=== PATIENT | female | born 1960 | race Caucasian/White ===

== ENCOUNTER → 2020-03-14 07:13 | Outpatient (BNVA) | payer OTHER, SELFPAY | PROVIDERS: Visit Provider Internal Medicine Endocrinology, Diabetes & Metabolism | DX: E11.42 Type 2 diabetes mellitus with diabetic polyneuropathy (principal); E11.21 Type 2 diabetes mellitus with diabetic nephropathy; E11.3299 Type 2 diabetes mellitus with mild nonproliferative diabetic retinopathy without macular edema, unspecified eye; Z79.84 Long term (current) use of oral hypoglycemic drugs; E04.2 Nontoxic multinodular goiter; I10 Essential (primary) hypertension; E78.5 Hyperlipidemia, unspecified | CPT/HCPCS: 82947; 99212 ==

== ENCOUNTER → 2020-03-21 08:12 | Outpatient (BNVA) | payer OTHER, SELFPAY | PROVIDERS: Visit Provider Dietitian, Registered | DX: Z76.89 Persons encountering health services in other specified circumstances (principal) ==

== ENCOUNTER 2020-08-18 08:17 | Outpatient (REF) | payer OTHER, SELFPAY | END 2020-08-18 08:18 | disposition home or self-care (01) | LOC: HO.LAB 08:17 | PROVIDERS: Visit Provider Physician Assistant | DX: K91.2 Postsurgical malabsorption, not elsewhere classified (principal); Z98.84 Bariatric surgery status; Z90.3 Acquired absence of stomach [part of] | CPT/HCPCS: 99212 ==

== ENCOUNTER 2020-10-24 08:02 | Outpatient (REF) | payer OTHER, SELFPAY ==
[2020-10-24 09:45] LABS: MANUAL DIFF FLAG NO
[2020-10-24 09:51] LABS: Basophils Percent Auto 0.6 % (0-2); Eosinophils Absolute Auto 0.1 X10*3/uL (0.0-0.4); Eosinophils Percent Auto 2.7 % (0-4); Hematocrit 32.7 % (37-47); Hemoglobin 10.1 g/dl (12.0-16.0); Imm Gran Abs Auto 0.01 X10*3/uL (0.00-0.03); Imm Gran Pct Auto 0.3 % (0.0-0.4); Lymphocytes Absolute Auto 1.1 X10*3/uL (1.2-4.9); Lymphocytes Percent Auto 33.3 % (20-40); Mean Corpuscular HGB Conc 30.9 g/dl (31.0-35.0); Mean Corpuscular Hemoglobin 24.9 pg (27.0-33.0); Mean Corpuscular Volume 80.5 fL (80-98); Mean Platelet Volume 9.4 fL (9.4-12.3); Monocytes Absolute Auto 0.3 X10*3/uL (0.1-1.2); Monocytes Percent Auto 8.2 % (2-11); Neutrophils Absolute Auto 1.8 X10*3/uL (2.0-8.3); Neutrophils Percent Auto 54.9 % (45-73); Platelet Count 272 X10*3/uL (160-400); Red Blood Count 4.06 X10*6/uL (4.20-5.50); Red Cell Distribution Width 14.4 % (11.0-16.0); White Blood Count 3.3 X10*3/uL (4.8-10.8)
[2020-10-24 10:04] LABS: Estimated Average Glucose 160 mg/dL; Hemoglobin A1c % 7.2 %
[2020-10-24 10:13] LABS: Alanine Aminotransferase 58 U/L (0-31); Albumin Level 4.1 g/dL (3.5-5.0); Alkaline Phosphatase 71 U/L (39-117); Anion Gap 11 (12-20); Aspartate Amino Transferase 44 U/L (5-31); Bilirubin Total 0.5 mg/dL (0.0-1.0); Blood Urea Nitrogen 12 mg/dL (9-16); C Reactive Protein < 0.02 mg/dL (< or = 0.50); Calcium 8.9 mg/dL (8.4-10.2); Carbon Dioxide 27 mmol/L (22-29); Chloride 106 mmol/L (96-108); Cholesterol 131 mg/dL; Estimated Glomerular Filt Rate > 60; Glucose Fasting 104 mg/dL (60-99); HDL Cholesterol 65 mg/dL; Iron 29 mcg/dL (30-160); LDL Cholesterol Calculated 55 mg/dl; Percent Iron Saturation 7 % (15-50); Sodium 140 mmol/L (135-145); Total Iron Binding Capacity 432 mcg/dL (228-428); Total Protein 7.1 g/dL (6.5-8.0); Triglycerides 56 mg/dL; Unsaturated Iron Binding 403 ug/dL
[2020-10-24 10:22] LABS: Creatinine Urine 208.05 mg/dL; Microalbum/Creatinine Ratio Ur 12.9 ug/mg cr
[2020-10-24 10:33] LABS: Ferritin 3 ng/mL (10-250); TSH reflex Free T4 0.35 uIU/mL (0.32-4.0); Vitamin D 25-OH Total 33.1 ng/mL (>30)
[2020-10-24 10:39] LABS: Free T4 (Free Thyroxine) 0.85 ng/dL (0.71-1.85); Thyroid Stimulating Hormone 0.34 uIU/mL (0.32-4.0)
[2020-10-24 10:53] LABS: Folate 14.4 ng/mL (> or = 4.0); Vitamin B12 283 pg/mL (200-900)
[2020-10-25 14:52] LABS: LDL Cholesterol Direct 52 mg/dL (<100)
[2020-10-25 18:32] LABS: Insulin Level Total 4.5 uIU/mL
[2020-10-26 10:36] LABS: Calcium (PTHI) 9.1 mg/dL (8.6-10.4); PTHI 49 pg/mL (14-64)
[2020-10-27 06:31] LABS: Zinc 90 mcg/dL (60-130)
[2020-10-28 00:47] LABS: Vitamin A 47 mcg/dL (38-98)
[2020-10-29 13:41] LABS: Vitamin B1 15 nmol/L (8-30)
== END 2020-10-24 08:03 | disposition home or self-care (01) ==
LOC: HO.LAB 08:02
PROVIDERS: Absent Provider Physician Assistant; PCP Family Medicine; Visit Provider Internal Medicine Endocrinology, Diabetes & Metabolism
DX: E11.65 Type 2 diabetes mellitus with hyperglycemia (principal); E11.3299 Type 2 diabetes mellitus with mild nonproliferative diabetic retinopathy without macular edema, unspecified eye; E11.42 Type 2 diabetes mellitus with diabetic polyneuropathy; K91.2 Postsurgical malabsorption, not elsewhere classified; E66.01 Morbid (severe) obesity due to excess calories; E78.5 Hyperlipidemia, unspecified; E04.2 Nontoxic multinodular goiter; I10 Essential (primary) hypertension; Z98.84 Bariatric surgery status; Z90.3 Acquired absence of stomach [part of]
CPT/HCPCS: 36415; 80053; 80061; 82043; 82306; 82607; 82728; 82746; 82947; 83036; 83525; 83540; 83721; 83970; 84425; 84439; 84443; 84590; 84630; 85025; 86140; 99212

== ENCOUNTER → 2020-11-15 08:13 | Outpatient (BNVA) | payer OTHER, SELFPAY | PROVIDERS: PCP Family Medicine; Visit Provider Physician Assistant | DX: K91.2 Postsurgical malabsorption, not elsewhere classified (principal); Z90.3 Acquired absence of stomach [part of]; Z98.84 Bariatric surgery status; E66.01 Morbid (severe) obesity due to excess calories ==

== ENCOUNTER 2021-01-26 07:51 | Outpatient (REF) | payer OTHER, SELFPAY ==
[2021-01-26 08:37] LABS: MANUAL DIFF FLAG NO
[2021-01-26 08:44] LABS: Basophils Percent Auto 0.5 % (0-2); Eosinophils Absolute Auto 0.1 X10*3/uL (0.0-0.4); Eosinophils Percent Auto 2.2 % (0-4); Hematocrit 36.9 % (37-47); Hemoglobin 11.7 g/dl (12.0-16.0); Imm Gran Abs Auto 0.01 X10*3/uL (0.00-0.03); Imm Gran Pct Auto 0.2 % (0.0-0.4); Lymphocytes Absolute Auto 1.4 X10*3/uL (1.2-4.9); Lymphocytes Percent Auto 32.6 % (20-40); Mean Corpuscular HGB Conc 31.7 g/dl (31.0-35.0); Mean Corpuscular Hemoglobin 25.8 pg (27.0-33.0); Mean Corpuscular Volume 81.5 fL (80-98); Mean Platelet Volume 9.1 fL (9.4-12.3); Monocytes Absolute Auto 0.4 X10*3/uL (0.1-1.2); Monocytes Percent Auto 8.9 % (2-11); Neutrophils Absolute Auto 2.3 X10*3/uL (2.0-8.3); Neutrophils Percent Auto 55.6 % (45-73); Platelet Count 257 X10*3/uL (160-400); Red Blood Count 4.53 X10*6/uL (4.20-5.50); Red Cell Distribution Width 15.5 % (11.0-16.0); White Blood Count 4.2 X10*3/uL (4.8-10.8)
[2021-01-26 09:20] LABS: Alanine Aminotransferase 30 U/L (0-31); Albumin Level 4.1 g/dL (3.5-5.0); Alkaline Phosphatase 68 U/L (39-117); Anion Gap 9 (12-20); Aspartate Amino Transferase 27 U/L (5-31); Bilirubin Total 0.7 mg/dL (0.0-1.0); Blood Urea Nitrogen 12 mg/dL (9-16); Calcium 9.3 mg/dL (8.4-10.2); Carbon Dioxide 30 mmol/L (22-29); Chloride 104 mmol/L (96-108); Estimated Glomerular Filt Rate > 60; Glucose Random 121 mg/dL (60-115); Iron 64 mcg/dL (30-160); Percent Iron Saturation 16 % (15-50); Potassium 4.2 mmol/L (3.3-5.1); Sodium 139 mmol/L (135-145); Total Iron Binding Capacity 401 mcg/dL (228-428); Total Protein 7.2 g/dL (6.5-8.0); Unsaturated Iron Binding 337 ug/dL
[2021-01-26 09:36] LABS: Ferritin 8 ng/mL (10-250)
[2021-01-26 10:57] LABS: Folate 16.6 ng/mL (> or = 4.0); Vitamin B12 > 2000 pg/mL (200-900)
== END 2021-01-26 07:52 | disposition home or self-care (01) ==
LOC: HO.LAB 07:51
PROVIDERS: PCP Family Medicine; Visit Provider Physician Assistant
DX: K91.2 Postsurgical malabsorption, not elsewhere classified (principal); D64.9 Anemia, unspecified; E53.8 Deficiency of other specified B group vitamins; K59.00 Constipation, unspecified; E66.1 Drug-induced obesity; R00.0 Tachycardia, unspecified; E11.8 Type 2 diabetes mellitus with unspecified complications; Z98.84 Bariatric surgery status
CPT/HCPCS: 36415; 80053; 82607; 82728; 82746; 83540; 85025; 99212

== ENCOUNTER → 2021-04-28 07:58 | Outpatient (BNVA) | payer OTHER, SELFPAY | PROVIDERS: PCP Family Medicine; Visit Provider Physician Assistant Surgical ==

== ENCOUNTER 2021-09-19 08:14 | Outpatient (REF) | payer OTHER, SELFPAY ==
--- NOTE | ~2021-09-19 | US_ITS ---
EXAMINATION: US THYROID CLINICAL INFORMATION: Nontoxic multinodular goiter. COMPARISON: Thyroid ultrasound 12/23/2019 and 12/29/2018. Ultrasound-guided thyroid biopsy 08/22/2017. TECHNIQUE: Linear transducer grayscale and color Doppler examination with attention to the region of the thyroid. FINDINGS: SIZE: Measurements of the thyroid lobes and nodules are given in sagittal, anteroposterior and transverse dimensions respectively. Right Thyroid Lobe: 5.6 x 1.4 x 1.5 cm, volume 4.2 mL. Previously 5.4 x 1.4 x 1.4 cm, volume 5.5 mL. Parenchyma: The gland echotexture is homogeneous. Thyroid vascularity is normal. Left Thyroid Lobe: 5.5 x 1.4 x 1.5 cm, volume 6.1 mL. Previously 5.5 x 1.5 x 1.3 cm, volume 5.6 mL. Parenchyma: The gland echotexture is homogeneous. Thyroid vascularity is increased. Isthmus: 0.2 cm in maximum AP dimension. Previously 0.2 cm. Estimated total number of nodules greater than or equal to 1 cm: 3. Plant Hr Manager nodules are described as follows: 1. Location: Right mid pole. Size: 1.1 x 0.6 x 0.6 cm, volume 0.2 mL. Previously: 0.9 x 0.6 x 0.6 cm, volume 0.2 mL. Nodule characteristics: Composition: Solid (2). Echogenicity: Hypoechoic (2). Shape: Not taller than wide (0). Margins: Ill-defined (0). Echogenic Foci: None (0). ACR TI-RADS total points: 4 ACR TI-RADS category: 4 Significant change in size (>/= 20% in 2 dimensions and minimal increase of 2 mm or 50% or greater increase in volume): No Change in features: No Change in ACR TI-RADS risk category: No 2. Location: Right mid pole. Size: 0.9 x 0.4 x 0.4 cm, volume 0.08 mL. Previously: 0.6 x 0.4 x 0.5 cm, volume 0.06 mL. Nodule characteristics: Composition: Solid (2). Echogenicity: Hypoechoic (2). Shape: Not taller than wide (0). Margins: Ill-defined (0). Echogenic Foci: None (0). ACR TI-RADS total points: 4 ACR TI-RADS category: 4 Significant change in size (>/= 20% in 2 dimensions and minimal increase of 2 mm or 50% or greater increase in volume): Yes Change in features: No Change in ACR TI-RADS risk category: No 3. Location: Left mid pole. Size: 1.1 x 1.0 x 0.9 cm, volume 0.5 mL. Previously: 1.2 x 0.8 x 0.7 cm, volume 0.3 mL. Nodule characteristics: Composition: Solid/almost completely solid (2). Echogenicity: Isoechoic (1). Shape: Taller than wide (3). Margins: Ill-defined (0). Echogenic Foci: Macrocalcifications (1). ACR TI-RADS total points: 7 ACR TI-RADS category: 5 Significant change in size (>/= 20% in 2 dimensions and minimal increase of 2 mm or 50% or greater increase in volume): Yes Change in features: No Change in ACR TI-RADS risk category: No 4. Location: Left lower pole. Size: 2.6 x 1.1 x 2.1 cm, volume 3.2 mL. Previously: 2.7 x 1.4 x 1.9 cm, volume 3.8 mL. Nodule characteristics: Composition: Solid (2). Echogenicity: Isoechoic (1). Shape: Not taller than wide (0). Margins: Smooth (0). Echogenic Foci: Macrocalcifications (1). Punctate echogenic foci (3). ACR TI-RADS total points: 7 ACR TI-RADS category: 5 Significant change in size (>/= 20% in 2 dimensions and minimal increase of 2 mm or 50% or greater increase in volume): No Change in features: No Change in ACR TI-RADS risk category: No NODES: No lymphadenopathy is seen in the tissue surrounding the thyroid gland. US/US thyroid IMPRESSION: Redemonstration of multiple thyroid nodules with a slightly hyperemic left lobe of the thyroid. Specifically, sales representative jewelry nodules are as follow: Nodule 1: Measuring up to 1.1 cm not significantly changed, TR 4. Continued surveillance by imaging is recommended. Nodule 2: Measuring up to 0.9 cm, slightly increase in size (previously 0.6 cm), TR 4. Continued surveillance but imaging is recommended. Nodule 3: Measuring up to 1.1 cm volume of 0.5 mL, slightly increased in size (previously volume of 0.3 mL), TR 5. If not already obtained, FNA is recommended alternatively, continued surveillance is advised. Nodule 4: Measuring up to 2.6 cm, not significantly changed, TR 5. As above, if not already obtained, FNA is recommended otherwise continue surveillance is advised. ACR TI-RADS RECOMMENDATION REFERENCE: Ultrasound-guided fine-needle aspiration, followup ultrasound, no further follow up. * TR1 (0 point) and TR 2 (2 points): No FNA or follow up * TR3 (3 points): FNA if more than or equal to 2.5 cm in maximum dimension, followup ultrasound in 1, 3 and 5 years if 1.5 to 2.4 cm in maximum dimension. * TR4 (4-6 points): FNA if more than or equal to 1.5 cm in maximum dimension, followup ultrasound in 1, 2, 3 and 5 years if 1 to 1.4 cm in maximum dimension. * TR5 (more than or equal to 7 points): FNA if more than or equal to 1 cm in maximum dimension, followup ultrasound every year for 5 years if 0.5 to 0.9 cm in maximum dimension. * TR3, TR4 or TR5 nodules that are below the size threshold for follow up receive no follow up.
== END 2021-09-19 08:15 | disposition home or self-care (01) ==
LOC: HO.US 08:14
PROVIDERS: Visit Provider Internal Medicine Endocrinology, Diabetes & Metabolism
DX: E04.2 Nontoxic multinodular goiter (principal)
CPT/HCPCS: 76536

== ENCOUNTER → 2021-11-02 07:57 | Outpatient (BNVA) | payer OTHER, SELFPAY | PROVIDERS: PCP Family Medicine; Visit Provider Internal Medicine Endocrinology, Diabetes & Metabolism | DX: E11.65 Type 2 diabetes mellitus with hyperglycemia (principal); E04.2 Nontoxic multinodular goiter; Z79.84 Long term (current) use of oral hypoglycemic drugs | CPT/HCPCS: 82947; 99212 ==

== ENCOUNTER 2021-11-02 08:41 | Outpatient (REF) | payer OTHER, SELFPAY ==
[2021-11-02 10:46] LABS: Anion Gap 10 (12-20); Blood Urea Nitrogen 10 mg/dL (9-16); Calcium 9.1 mg/dL (8.4-10.2); Carbon Dioxide 29 mmol/L (22-29); Chloride 104 mmol/L (96-108); Cholesterol 126 mg/dL; Estimated Glomerular Filt Rate > 60; Glucose Random 103 mg/dL (60-115); HDL Cholesterol 55 mg/dL; LDL Cholesterol Calculated 57 mg/dl; Potassium 4.2 mmol/L (3.3-5.1); Sodium 139 mmol/L (135-145); Triglycerides 73 mg/dL
[2021-11-02 11:09] LABS: Free T4 (Free Thyroxine) 0.85 ng/dL (0.71-1.85); Thyroid Stimulating Hormone 0.88 uIU/mL (0.32-4.0)
[2021-11-02 11:12] LABS: Creatinine Urine 177.54 mg/dL; Microalbum/Creatinine Ratio Ur 23.6 ug/mg cr
== END 2021-11-02 08:42 | disposition home or self-care (01) ==
LOC: HO.10HDL 08:41
PROVIDERS: Visit Provider Internal Medicine Endocrinology, Diabetes & Metabolism
DX: E11.65 Type 2 diabetes mellitus with hyperglycemia (principal); E04.2 Nontoxic multinodular goiter
CPT/HCPCS: 36415; 80048; 80061; 82043; 84439; 84443

== ENCOUNTER → 2022-05-03 07:48 | Outpatient (BNVA) | payer OTHER, SELFPAY | PROVIDERS: PCP Family Medicine; Visit Provider Internal Medicine Endocrinology, Diabetes & Metabolism | DX: E11.65 Type 2 diabetes mellitus with hyperglycemia (principal); E04.2 Nontoxic multinodular goiter | CPT/HCPCS: 82947; 83036; 99212 ==

== ENCOUNTER 2023-05-24 23:23 | Emergency (ER) | payer OTHER, SELFPAY ==
--- NOTE | 2023-05-24 | ECG_ITS ---
Test Reason : SHORTNESS OF BREATH Blood Pressure : / mmHG Vent. Rate : 067 BPM Atrial Rate : 067 BPM P-R Int : 136 ms QRS Dur : 078 ms QT Int : 396 ms P-R-T Axes : 065 -04 052 degrees QTc Int : 418 ms Normal sinus rhythm Low voltage QRS Borderline ECG When compared with ECG of 07-FEB-2018 14:50, Vent. rate has decreased BY 41 BPM Referred By: Generic ED Physician Electronically Signed By:MICAELA BRAGA MD
[2023-05-24 23:28] VITALS: BP 126/70; PULSE 71; RESP 18; TEMP 36.7; O2SAT 97; BMI 36.0
[2023-05-24 23:59] LABS: MANUAL DIFF FLAG NO
[2023-05-25 00:01] LABS: Basophils Percent Auto 0.5 % (0-2); Eosinophils Absolute Auto 0.2 X10*3/uL (0.0-0.4); Eosinophils Percent Auto 3.7 % (0-4); Hematocrit 38.9 % (37.0-47.0); Imm Gran Abs Auto 0.01 X10*3/uL (0.00-0.03); Imm Gran Pct Auto 0.2 % (0.0-0.4); Lymphocytes Absolute Auto 1.3 X10*3/uL (1.2-4.9); Lymphocytes Percent Auto 32.8 % (20-40); Mean Corpuscular HGB Conc 33.4 g/dl (31.0-35.0); Mean Corpuscular Hemoglobin 29.6 pg (27.0-33.0); Mean Corpuscular Volume 88.6 fL (80.0-98.0); Mean Platelet Volume 8.6 fL (9.4-12.3); Monocytes Absolute Auto 0.4 X10*3/uL (0.1-1.2); Monocytes Percent Auto 9.1 % (2-11); Neutrophils Absolute Auto 2.2 x10*3/uL (2.0-8.3); Neutrophils Percent Auto 53.7 % (45-73); Platelet Count 262 X10*3/uL (160-400); Red Blood Count 4.39 X10*6/uL (4.20-5.50); Red Cell Distribution Width 11.9 % (11.0-16.0); White Blood Count 4.1 X10*3/uL (4.8-10.8)
[2023-05-25 00:20] LABS: Alanine Aminotransferase 45 U/L (0-31); Alkaline Phosphatase 76 U/L (39-117); Anion Gap 12 (12-20); Aspartate Amino Transferase 28 U/L (5-31); Bilirubin Total 0.4 mg/dL (0.0-1.0); Blood Urea Nitrogen 15 mg/dL (9-16); Calcium 9.2 mg/dL (8.4-10.2); Carbon Dioxide 27 mmol/L (22-29); Chloride 105 mmol/L (96-108); Creatinine Clr Calc Pharmacy 86.7; Estimated Glomerular Filt Rate > 60; Glucose Random 111 mg/dL (60-115); Potassium 3.7 mmol/L (3.3-5.1); Sodium 140 mmol/L (135-145); Total Protein 7.3 g/dL (6.5-8.0)
[2023-05-25 00:38] LABS: Troponin-I High Sensitivity < 2.7 ng/L (<3.5-17.0)
[2023-05-25 03:38] VITALS: BP 121/62; PULSE 63; RESP 16; TEMP 36.8; O2SAT 97
[2023-05-25] MEDS: oxyCODONE HCl Immed Release 5 MG TABLET PO (03:50)
[2023-05-25] MEDS: Lidocaine 4 % Patch ADH..PATCH 1 PATCH TRANSDERMA (03:51)
[2023-05-25] MEDS: Ondansetron ODT 4 MG TAB.RAPDIS TRANSLINGU (03:51)
--- NOTE | 2023-05-25 03:54 | ED.NECK ---
HPI - Neck Pain/Injury General Chief Complaint: Extremity Problem Stated Complaint: ?L side numbness Time Seen by Provider: 05/25/23 02:43 Source: patient Mode of arrival: ambulatory Limitations: no limitations History of Present Illness HPI Narrative: 62 yo female with PMH of diabetes, diabetic neuropathy, anemia, gastric bypass, HLD, HTN, here with c/o L sided neck pain radiating down the L arm and L leg since waking Saturday AM worse with movements or turning neck. No trauma to neck or any injury. Has had neck issues before. No new numbness or weakness. MD complaint: neck pain Onset (ago): day(s) (Saturday) Place: home Radiation: left lateral Severity: moderate Quality: sharp Duration: constant Relieving factors: remaining still Exacerbating factors: movement of extremity and movement of neck Context: other (woke up like this no precipitating event) Associated symptoms: other (pain in arm and leg) Treatments prior to arrival: none Related Data Home Medications Medication Instructions Recorded Confirmed duloxetine 30 mg capsule,delayed 30 mg PO DAILY 03/14/20 04/28/21 release hydroxyzine HCl 50 mg tablet 50 mg PO DAILY 03/14/20 04/28/21 losartan 25 mg tablet 25 mg PO DAILY 03/14/20 04/28/21 lurasidone 80 mg tablet (Latuda) 80 mg PO DAILY 03/14/20 04/28/21 mirtazapine 15 mg tablet 15 mg PO DAILY 03/14/20 04/28/21 pantoprazole 40 mg tablet,delayed 40 mg PO DAILY 03/14/20 04/28/21 release OTC Multivitamin PO 11/15/20 04/28/21 alcohol swabs (Alcohol Prep Pads) pad topical QID 11/02/21 blood sugar diagnostic (FreeStyle #10 ea 11/02/21 Lite Strips) fluticasone propionate 50 2 spray intranasal DAILY 11/02/21 mcg/actuation nasal spray,suspension lancets 28 gauge (FreeStyle #100 ea 11/02/21 Lancets) ferrous sulfate 325 mg (65 mg 325 mg PO DAILY 05/03/22 iron) tablet nabumetone 500 mg tablet 500 mg PO BID PRN pain 05/03/22 Previous Rx's Medication Instructions Recorded cholecalciferol (vitamin D3) 50 50 mcg PO DAILY 90 days #90 caps 10/24/20 mcg (2,000 unit) capsule metformin 500 mg tablet,extended 500 mg PO BID 30 days #60 tabs 10/24/20 release 24 hr atorvastatin 40 mg tablet 40 mg PO DAILY #30 tabs 11/03/20 iron,carbonyl 65 mg-vitamin C 125 1 tab PO DAILY #30 tabs 11/15/20 mg tablet,delayed release (Vitron-C) dulaglutide 1.5 mg/0.5 mL 1.5 mg (0.5 mL) subcut QWEEK #2 mL 05/15/22 subcutaneous pen injector (Trulicity) acarbose 50 mg tablet 50 mg PO TID #270 tabs 12/03/22 cyclobenzaprine 10 mg tablet 10 mg PO TID PRN muscle spasm #20 05/25/23 tabs lidocaine 5 % topical patch 1 patch topical DAILY #30 ea 05/25/23 Allergies Allergy/AdvReac Type Severity Reaction Status Date / Time enalapril [ENALAPRIL] Allergy Severe LIP Verified 05/24/23 23:28 SWELLING DIFFICULTY BREATHING, oral swelling pt states no food allergies Allergy Unknown Anaphylaxis Uncoded 08/18/20 08:30 Review of Systems Review of Systems: Constitutional : No Fever, No Chills ENT/Mouth : No Ear Pain, No Hoarseness, No sore throat Eyes: No Eye Pain, No Swelling, No Redness, No Foreign Body Cardiovascular : No Chest Pain, No SOB Respiratory : No Cough, No Dyspnea Gastrointestinal : No Nausea, No Vomiting, No Diarrhea, No abdominal Pain Genitourinary : No Dysuria, No Hematuria Musculoskeletal : positive joint pain, No Myalgias, No Joint Swelling, pos neck pain Skin : No Skin lacerations, No rash Neuro : No Weakness, No Numbness, No Loss of Consciousness, No Dizziness, No Headache Psych : No Anxiety/Panic, No Depression All other systems reviewed and are negative PMFSH Past Medical History Attestation statement: The following information was validated with the patient. Source: old records reviewed Onset Date is defined in the Problem List Problems that require an onset date and time if occurred within 24 hrs of arrival to the ED Aortic Dissection and Rupture; Neurologic impairment; Cardiopulmonary Arrest; Endotracheal Intubation; Insertion or Replacement of Mechanical Circulatory Assist Device Medical History Anemia Vitamin B12 deficiency Intestinal malabsorption following gastrectomy Background diabetic retinopathy associated with type 2 diabetes mellitus Dyslipidemia Hypertension Non-toxic multinodular goiter Diabetic polyneuropathy associated with type 2 diabetes mellitus Diabetes type 2, controlled Surgical History S/P gastric bypass History of bariatric surgery Hx of breast reduction, elective Hx of hernia repair Hx of colonoscopy Hx of abdominal hysterectomy Family History Family History Father Diabetes CVD (cardiovascular disease) Mother CVD (cardiovascular disease) Diabetes Social History Social History Alcohol intake: never Patient Tobacco Use Status: Never used Tobacco Smoked in Last 30 Days: No Use of substances other than those prescribed or required for medical reasons: No Advance Directives: No Advance Directives Information Provided: Yes Patient : No Physical Exam Vital Signs: Vital Signs: Last Vital Signs Temp 98.3 F 05/25/23 03:38 Pulse 63 05/25/23 03:38 Resp 16 05/25/23 03:38 BP 121/62 05/25/23 03:38 Pulse Ox 97 05/25/23 03:38 O2 Del Method Room Air 05/25/23 03:38 BMI result Body Mass Index 36.0 Appearance: Alert. Oriented X3. No acute distress. Eyes: Pupils equal, round and reactive to light. ENT: Pharynx normal. Neck: ttp along left lateral and movements of neck reproduce pain CVS: Normal heart rate and rhythm. Pulses normal. Respiratory: No respiratory distress. Breath sounds normal. Abdomen: Soft and nontender. Skin: Skin warm and dry. Normal skin color. Normal skin turgor. Extremities: No lower extremity edema. No calf ttp Neuro: Oriented X 3. No motor deficit. No sensory deficit. UE and LE intact 2+ radial and DP pulses Medications Administered Discontinued Medications Generic Name Dose Route Start Last Admin Trade Name Freq PRN Reason Stop Dose Admin Lidocaine 1 patch 05/25/23 03:41 05/25/23 03:51 Lidocaine 4 % Patch Adh..Patch TRANSDERMA 05/25/23 03:42 1 patch ONCE ONE Administration Protocol Ondansetron HCl 4 mg 05/25/23 03:41 05/25/23 03:51 Ondansetron Odt 4 Mg Tab.Rapdis TRANSLINGU 05/25/23 03:42 4 mg ONCE ONE Administration Oxycodone HCl 5 mg 05/25/23 03:41 05/25/23 03:50 Oxycodone Hcl Immed Release 5 Mg Tablet PO 05/25/23 03:42 5 mg ONCE ONE Administration Medical Decision Making Medical Decision Making [facility] Narrative: 62 yo female with PMH of diabetes, diabetic neuropathy, anemia, gastric bypass, HLD, HTN here with c/o reproduceable left neck pain that radiates down the left arm adn is reproduceable in nature - she is NV intact with bounding distal pulses. At this time suspect cervical radiculopathy. Pulses intact in no distress doubt dissection. Differential Diagnosis Differential Diagnoses: The differential diagnosis associated with the presentation includes cervical radiculopathy, sprain, strain Admission/Observation Consideration of admission/observation: Escalation of care including admission/observation considered feels better stable for DC Lab Data [facility] Lab Attestation statement: I reviewed the patient's lab results. 05/24/23 23:52 05/24/23 23:52 Labs: Lab Results 05/24/23 Range/Units 23:52 WBC 4.1 L (4.8-10.8) X10*3/uL RBC 4.39 (4.20-5.50) X10*6/uL Hgb 13.0 (12.0-16.0) g/dl Hct 38.9 (37.0-47.0) % MCV 88.6 (80.0-98.0) fL MCH 29.6 (27.0-33.0) pg MCHC 33.4 (31.0-35.0) g/dl RDW 11.9 (11.0-16.0) % Plt Count 262 (160-400) X10*3/uL MPV 8.6 L (9.4-12.3) fL Immature Gran % (Auto) 0.2 (0.0-0.4) % Neut % (Auto) 53.7 (45-73) % Lymph % (Auto) 32.8 (20-40) % [place] % (Auto) 9.1 (2-11) % Eos % (Auto) 3.7 (0-4) % Baso % (Auto) 0.5 (0-2) % Lymph # (Auto) 1.3 (1.2-4.9) X10*3/uL [place] # (Auto) 0.4 (0.1-1.2) X10*3/uL Eos # (Auto) 0.2 (0.0-0.4) X10*3/uL Baso # (Auto) 0.0 (0.0-0.2) X10*3/uL Abs Immat Gran (auto) 0.01 (0.00-0.03) X10*3/uL Absolute Neuts (auto) 2.2 (2.0-8.3) x10*3/uL Absolute Nucleated RBC 0.000 (0.0-0.012) X10*3/uL Nucleated RBC % (auto) 0.0 (0.0-0.2) /100WBC Sodium 140 (135-145) mmol/L Potassium 3.7 (3.3-5.1) mmol/L Chloride 105 (96-108) mmol/L Carbon Dioxide 27 (22-29) mmol/L Anion Gap 12 (12-20) BUN 15 (9-16) mg/dL Creatinine 0.78 (0.5-1.4) mg/dL Estim Creat Clear Calc 86.7 Estimated GFR > 60 Random Glucose 111 (60-115) mg/dL Calcium 9.2 (8.4-10.2) mg/dL Magnesium 2.0 (1.6-2.6) mg/dL Total Bilirubin 0.4 (0.0-1.0) mg/dL AST 28 (5-31) U/L ALT 45 H (0-31) U/L Alkaline Phosphatase 76 (39-117) U/L Troponin I High Sens < 2.7 (<3.5-17.0) ng/L Total Protein 7.3 (6.5-8.0) g/dL Albumin 4.0 (3.5-5.0) g/dL Beta-Hydroxybutyrate 0.10 (0.02-0.27) mmol/L Independent Interpretation I performed an independent interpretation of an: EKG Interpretation: Rate: 67 Rhythm: NSR [place]: normal Normal P waves. Normal MONICO. Normal QRS complex. ST T wave : normal no GEMMA qTC: normal prior studies: no acute ischemia The study has been interpreted contemporaneously by me. . Independent Historian Clinical information obtained from an independent historian. History obtained from or confirmed by: Friend External Record Review External record reviewed: Inpatient record Prescription Management I considered prescription management with: Pain Medication and Other Discharge Plan Discharge Clinical Impression: Cervical radiculopathy Patient Disposition: Home, Self-Care Instructions: Cervical Radiculopathy (ED) Additional Instructions: return for worsening pain, numbness, weakness in upper extremity, or any other concerns. follow up with doctor next week. Prescriptions: New cyclobenzaprine 10 mg tablet 10 mg PO TID PRN (Reason: muscle spasm) Qty: 20 0RF lidocaine 5 % adhesive patch,medicated 1 patch topical DAILY Qty: 30 0RF Rx Instructions: leave on most painful area for up to 12 hrs No Action atorvastatin 40 mg tablet 40 mg PO DAILY Qty: 30 6RF Trulicity 1.5 mg/0.5 mL pen injector 1.5 mg subcut QWEEK Qty: 2 5RF acarbose 50 mg tablet 50 mg PO TID Qty: 270 2RF Latuda 80 mg tablet 80 mg PO DAILY Rx Instructions: must administer with food (at least 350 calories) hydroxyzine HCl 50 mg tablet 50 mg PO DAILY duloxetine 30 mg capsule,delayed release(DR/EC) 30 mg PO DAILY losartan 25 mg tablet 25 mg PO DAILY pantoprazole 40 mg tablet,delayed release (DR/EC) 40 mg PO DAILY mirtazapine 15 mg tablet 15 mg PO DAILY cholecalciferol (vitamin D3) 50 mcg (2,000 unit) capsule 50 mcg PO DAILY 90 Days Qty: 90 1RF metformin 500 mg tablet extended release 24 hr 500 mg PO BID 30 Days Qty: 60 6RF OTC Multivitamin PO Vitron-C 65 mg iron- 125 mg tablet,delayed release (DR/EC) 1 tab PO DAILY Qty: 30 5RF Rx Instructions: swallow whole; do not chew/break/dissolve/open fluticasone propionate 50 mcg/actuation spray,suspension 2 spray intranasal DAILY (DME) FreeStyle Lite Strips Strip See Rx Instructions Not Applicable QID Qty: 10 Rx Instructions: As directed (DME) lancets [FreeStyle Lancets] 28 gauge misc See Rx Instructions topical QID Qty: 100 Rx Instructions: As directed alcohol swabs [Alcohol Prep Pads] Pads, Medicated topical QID nabumetone 500 mg tablet 500 mg PO BID PRN (Reason: pain) ferrous sulfate 325 mg (65 mg iron) tablet 325 mg PO DAILY
== END 2023-05-25 04:54 | disposition home or self-care (01) ==
PROVIDERS: Emergency Provider Emergency Medicine
DX: M54.12 Radiculopathy, cervical region (principal); R06.02 Shortness of breath; Z79.899 Other long term (current) drug therapy
CPT/HCPCS: 36415; 80053; 82010; 83735; 84484; 85025; 93005; 99283; 99285

== ENCOUNTER → 2023-05-24 23:42 | Outpatient (BNV) | payer OTHER, SELFPAY | PROVIDERS: Emergency Provider Emergency Medicine; Visit Provider Internal Medicine Cardiovascular Disease | DX: R06.02 Shortness of breath (principal) | CPT/HCPCS: 93010 ==

== ENCOUNTER 2024-11-17 14:14 | Outpatient (AMB) | payer OTHER, SELFPAY ==
--- NOTE | 2024-11-17 14:50 | MHC.OFFVISWM ---
VS Expanded 11/17/24 15:05 BP 137/81 Blood Pressure Location Rt brachial Blood Pressure Position Sitting Pulse 64 Pulse Source Pulse Oximeter Temp 96.7 F L Temperature Source Temporal Artery Scan Pulse Oximetry 96 Oxygen Delivery Method Room Air Height 5 ft 4 in Weight 142 lb 12.8 oz BMI 24.5 Body Fat % 26.4 Body Fat Mass 37.6 Fat Free Mass 105.0 Visceral Fat Rating 7.0 Body Water % 51.9 Body Water Mass 4.0 Muscle Mass/Score 99.6 Basal Metabolic Rate/Score 1,385 Intake Visit Reasons: OV PO LRYGB 01/12/2016 Allergies enalapril (ENALAPRIL) Allergy (Severe, Verified 11/17/24 15:02) LIP SWELLING DIFFICULTY BREATHING, oral swelling pt states no food allergies Allergy (Unknown, Uncoded 08/18/20 08:30) Anaphylaxis Medication List - Last Reconciled 11/17/24 by KAREN Wyatt acarbose 50 mg PO TID alcohol swabs (Alcohol Prep Pads) pad topical QID atorvastatin 40 mg PO DAILY blood sugar diagnostic (FreeStyle Lite Strips) As directed cholecalciferol (vitamin D3) 50 mcg PO DAILY 90 days cyclobenzaprine 10 mg PO TID PRN dulaglutide (Trulicity) 4.5 mg subcut QWEEK duloxetine 30 mg PO DAILY ferrous sulfate 325 mg PO DAILY fluticasone propionate 50 mcg/actuation 2 sprays intranasal DAILY hydroxyzine HCl 50 mg PO DAILY insulin glargine 15 units subcut DAILY iron,carbonyl-vitamin C 65 mg iron- 125 mg (Vitron-C) 1 tab PO DAILY lancets (FreeStyle Lancets) As directed lidocaine 5% 1 patch topical DAILY losartan 25 mg PO DAILY lurasidone (Latuda) 80 mg PO DAILY mirtazapine 15 mg PO DAILY nabumetone 500 mg PO BID PRN [OTC Multivitamin PO] pantoprazole 40 mg PO DAILY HPI Comments Details: This?is a?64?yo F who is s/p RYGB 01/12/2016 Weight gain of 17.8lbs since last OV, pt remains at healthy BMI. No complaints of nausea, emesis, abdominal pain or reflux, or constipation. Pt reports that her sugars were poorly controlled so she was started on Lantus; sees endocrinology outside of [facility] [place]. Present meal plan includes: not following a consistent plan Exercise routine includes: goes to gym for stationary bike and stairmaster, 5 days per week. Have you been diagnosed with reflux (GERD)? Score 0-5: 0=no symptoms, 1=noticeable but not bothersome (slight or occasional), 2=noticeable, bothersome but not daily, 3=bothersome and daily, 4=affects daily activities, 5=incapacitating, unable to do daily activities How bad is the heartburn: 0 Heartburn when lying down: 0 Heartburn when standing up: 0 Heartburn after meals: 0 Does heartburn change your diet: 0 Does heartburn wake you up from sleep: 0 Do you have difficulty swallowin Do you have pain with swallowin If you take medication for reflux, does this affect your daily life: 0 Total score: 0 PFSH Medical History Anemia Vitamin B12 deficiency Intestinal malabsorption following gastrectomy Background diabetic retinopathy associated with type 2 diabetes mellitus Dyslipidemia Hypertension Non-toxic multinodular goiter Diabetic polyneuropathy associated with type 2 diabetes mellitus Diabetes type 2, controlled Surgical History S/P gastric bypass History of bariatric surgery Hx of breast reduction, elective Hx of hernia repair Hx of colonoscopy Hx of abdominal hysterectomy Family History Father Diabetes CVD (cardiovascular disease) Mother CVD (cardiovascular disease) Diabetes Social History Alcohol intake: never Patient Tobacco Use Status: Never used Tobacco Assessment & Plan Assessment & Plan (1) S/P gastric bypass: Code(s): Z98.84 - Bariatric surgery status Category: Surgical Plan Pt agreeable to returning to previous meal plan which helped her maintain a comfortable weight. Also should help control blood sugars. BF: premier protein shake snack: 1/2 premier protein bar L: 2 oz veg/salad and 2 oz turkey/meat snack: 1/2 premier protein bar D: 3 oz protein and 3 oz vegetables/salad Due for labs, ordered. RTC 3mo. Orders: Orders Vitamin D 25-OH Total Today KAREN Wyatt Z98.84 - Bariatric surgery status TSH reflex Free T4 Today KAREN Wyatt Z98.84 - Bariatric surgery status C Reactive Protein Today KAREN Wyatt Z98.84 - Bariatric surgery status Vitamin B1 Today KAREN Wyatt Z98.84 - Bariatric surgery status Vitamin B12 and Folate Today KAREN Wyatt Z98.84 - Bariatric surgery status Comprehensive Met. Panel Today KAREN Wyatt Z98.84 - Bariatric surgery status Complete Blood Count Auto Diff Today KAREN Wyatt Z98.84 - Bariatric surgery status Lipid Panel Today KAREN Wyatt Z98.84 - Bariatric surgery status Hemoglobin A1c Today KAREN Wyatt Z98.84 - Bariatric surgery status Insulin Today KAREN Wyatt Z98.84 - Bariatric surgery status Ferritin Today KAREN Wyatt Z98.84 - Bariatric surgery status Vitamin A Today KAREN Wyatt Z98.84 - Bariatric surgery status Zinc Today KAREN Wyatt Z98.84 - Bariatric surgery status IRON PROFILE Today KAREN Wyatt Z98.84 - Bariatric surgery status Medications: Changed From dulaglutide (Trulicity) 1.5 mg (0.5 mL) subcut QWEEK 2 mL 5RF To dulaglutide (Trulicity) 4.5 mg subcut QWEEK Erickson Leyva MD
[2024-11-17 15:05] VITALS: BP 137/81; PULSE 64; TEMP 35.9; O2SAT 96; BMI 24.5
== END 2024-11-17 15:29 | disposition home or self-care (01) ==
LOC: HO.HBS 14:15
PROVIDERS: Visit Provider Physician Assistant Surgical
DX: Z71.3 Dietary counseling and surveillance (principal); Z98.84 Bariatric surgery status
CPT/HCPCS: 99214; G2211

== ENCOUNTER → 2024-11-17 14:14 | Outpatient (BNVA) | payer OTHER, SELFPAY | PROVIDERS: Visit Provider Physician Assistant Surgical | DX: Z98.84 Bariatric surgery status (principal) | CPT/HCPCS: 99212 ==